=== PATIENT | male | born 1990 | race Hispanic/Latino ===

== ENCOUNTER 2021-09-23 23:00 | Emergency (ER) | payer BC, OTHER ==
[~2021-09-23] VITALS: Ht 167.6 cm; Wt 127.0 kg
[~2021-09-23 23:00] MED LIST: AMBIEN5 MG PO; RISPERDAL1 MG PO; ZOLOFT100 MG PO
[2021-09-24 00:24] VITALS: BP 129/84
== END 2021-09-24 00:27 | disposition home or self-care (01) ==
LOC: ER 23:19
DX: R06.02 Shortness of breath (principal); F41.9 Anxiety disorder, unspecified; F20.9 Schizophrenia, unspecified; F31.9 Bipolar disorder, unspecified; Z20.822 Contact with and (suspected) exposure to COVID-19; F17.210 Nicotine dependence, cigarettes, uncomplicated
CPT/HCPCS: 0223U; 36415; 99284